=== PATIENT | female | born 1940 | race Asian ===

== ENCOUNTER → 2016-09-17 | Day surgery (SDC) | payer MEDICARE, MEDICAID ==
[2016-09-17] VITALS (8 sets, daily range): BP systolic 122–160; BP diastolic 67–85
[~2016-09-17] VITALS: Ht 152.4 cm; Wt 65.8 kg
[~2016-09-17] MED LIST: Akten 3.5% 1ml Btl ONE; BSS 15ml BTL ONE; BSS 500ml btl ONE; CENTRUM COMPLE1 EAC1 PO; Dexamethasone 4mg/ml vial ONE; Diclofenac Sod 0.1% Op Soln ONE; DiphenhydrAMINE 50mg/ml Inj IVP PRN; EPINEPHrine 1mg/1ml Amp ONE; Gatifloxacin Opth Solution 0.5% ONE; LR 1000ml 1,000 ML IVLG SCH; LR 1000ml ONE; Labetalol 5mg/ml 20ml vial IV PRN; Lidocaine 1% MPF 10mg/ml 5ml ONE; Phenylephrine 2.5% Op Soln ONE; Povidone-Iodine 5% opth solution ONE; Sodium Hyaluronate 14 mg/ml 0.85ml ONE; TYLENOL EXTRA500 MG ORAL; Tobradex Opth Susp 2.5ml ONE; Tropicamide 1% Opth Soln ONE; VITAMIN C500 M1 ORAL; VITAMIN D1000 UNI1 ORAL; fentaNYL 100 mcg/2 mL IV ONE
--- NOTE | 2016-09-17 07:40 | Pre-Procedure Note/Attestation ---
Pre-Procedure Note/Attestation Complete Prior to Procedure Planned Procedure: right Procedure Narrative: cataract extraction with implant right eye Indications for Procedure Pre-Operative Diagnosis: cataract right eye Attestation I attest that I discussed the nature of the procedure; its benefits; risks and complications; and alternatives (and the risks and benefits of such alternatives ), prior to the procedure, with the patient (or the patient's legal sales representative meats). I attest that, if there was a reasonable possibility of needing a blood transfusion, the patient (or the patient's legal sales representative meats) was given the [facility] standardized written summary, pursuant to the [place] Blood Safety Act ([place] Health and Safety Code # 1645, as amended). I attest that I re-evaluated the patient just prior to the surgery and that there has been no change in the patient's H&P, except as documented below: HARSHA JONES Sep 17, 2016 07:40
[2016-09-17] MEDS: Gatifloxacin Opth Solution 0.5% RIGHT EYE SCH ×3 (08:09→08:31)
[2016-09-17] MEDS: Diclofenac Sod 0.1% Op Soln RIGHT EYE SCH ×3 (08:09→08:31)
[2016-09-17] MEDS: Tobradex Opth Susp 2.5ml RIGHT EYE SCH ×3 (08:09→08:30)
[2016-09-17] MEDS: Phenylephrine 2.5% Op Soln RIGHT EYE SCH ×3 (08:09→08:30)
[2016-09-17] MEDS: Tropicamide 1% Opth Soln RIGHT EYE SCH ×3 (08:09→08:31)
[2016-09-17] MEDS: Akten 3.5% 1ml Btl RIGHT EYE SCH ×3 (08:09→08:31)
--- NOTE | 2016-09-17 08:31 | Anethesia Preoperative Eval ---
Anesthesia Pre-op PMH/ROS General Date of Evaluation: Sep 17, 2016 Anesthesiologist: Sotero ASA Score: ASA 2 Mallampati Score Class I : Soft palate, uvula, fauces, pillars visible Class II: Soft palate, uvula, fauces visible Class III: Soft palate, base of uvula visible Class IV: Only hard plate visible Mallampati Classification: Class II Surgeon: Kamran Diagnosis: Right cataract Surgical Procedure: Right cataract exraction with IOL Anesthesia History: none Family History: no anesthesia problems Allergies: Coded Allergies: No Known Allergies (Unverified , 09/16/16) Medications: see eMAR Past Medical History Cardiovascular: Reports: HTN, Denies: CAD, [place], arrhythmia, other, valve dz Pulmonary: Denies: COPD, KAMI, asthma, other Gastrointestinal/Genitourinary: Denies: CRI, ESRD, GERD, other Neurologic/Psychiatric: Denies: CVA, TIA, dementia, depression/anxiety, other Endocrine: Denies: DM, hypothyroidism, other, steroids HEENT: Denies: [place] (L), [place] (R), cataract (L), cataract (R), glaucoma, other Hematology/Immune: Denies: DVT, anemia, bleeding disorder, other Musculoskeletal/Integumentary: Reports: OA, Denies: DDD, DJD, RA, edema, other PSxH Narrative: TAHBSO Anesthesia Pre-op Phys. Exam Physician Exam see chart Constitutional: NAD Cardiovascular: RRR Respiratory: CTA Airway Exam Mallampati Score: Class II MO: full ROM: full Teeth: intact Anesthesia Pre-op A/P Labs Chemistry Test 09/17/16 08:10 Sodium Level Pending Potassium Level Pending Chloride Level Pending Carbon Dioxide Level Pending Blood Urea Nitrogen Pending Creatinine Pending Estimat Glomerular Filtration Rate Pending Glucose Level Pending Calcium Level Pending Studies Pre-op Studies: EKG - sr Risk Assessment & Plan Assessment: ASA II Plan: MAC Status Change Before Surgery: No Pre-Antibiotics Drug: N/A AKI CHAU M.D. Sep 17, 2016 08:31
--- NOTE | 2016-09-17 08:32 | Immediate Post-Op Evaluation ---
Immediate Post-Op Evalulation Immediate Post-Op Evalulation Procedure: Right catarct extraction with IOL Date of Evaluation: Sep 17, 2016 Time of Evaluation: 09:37 IV Fluids: 200 Blood Products: 0 Estimated Blood Loss: 0 Urinary Output: 0 Blood Pressure Systolic: 158 Blood Pressure Diastolic: 82 Pulse Rate: 88 Respiratory Rate: 17 O2 Sat by Pulse Oximetry: 100 Temperature (Fahrenheit): 99 Pain Score (1-10): 0 Nausea: No Vomiting: No Complications 0 Patient Status: awake, reacts, patent, none Hydration Status: adequate Drug: N/A AKI CHAU M.D. Sep 17, 2016 08:32
--- NOTE | 2016-09-17 08:32 | 48 Hour Post Anesthesia Eval ---
Post Anesthesia Evaluation Procedure: Right catarct extraction with IOL Date of Evaluation: Sep 17, 2016 Blood Pressure Systolic: 142 0: 86 Pulse Rate: 84 Respiratory Rate: 16 O2 Sat by Pulse Oximetry: 100 Airway: patent Nausea: No Vomiting: No Pain Intensity: 0 Hydration Status: adequate Cardiopulmonary Status: at baseline Mental Status/LOC: patient returned to baseline Post-Anesthesia Complications: 0 Follow-up care needed: ready to discharge AKI CHAU M.D. Sep 17, 2016 08:32
[2016-09-17 08:47] LABS: ANION GAP 15 (5-15); CALCIUM 8.8 mg/dL (8.6-10.2); CARBON DIOXIDE 26 mEQ/L (20-30); CHLORIDE 104 mEQ/L (98-107); CREATININE 0.5 mg/dL (0.5-0.9); HEMOLYSIS 5; POTASSIUM 3.8 mEQ/L (3.4-4.9); SODIUM 145 mEQ/L (135-145)
--- NOTE | 2016-09-17 09:38 | Brief Operative Note ---
Immediate Post Operative Note Operative Note Pre-op Diagnosis: cataract right eye Procedure: phacoemulsification of cataract with implant right eye Post-op Diagnosis: same as pre-op Surgeon: harsha rain Drying Machine Back Tender: none Anesthesiologist: aung boston Anesthesia: MAC Specimen: none Complications: none Condition: stable Estimated Blood Loss: none Drains: none Implant(s) used?: Yes HARSHA RAIN Sep 17, 2016 09:38
--- NOTE | 2016-09-17 15:08 | Operative Note - Dictated ---
DATE OF OPERATION: 09/17/2016 PREOPERATIVE DIAGNOSIS: Cataract, right eye. POSTOPERATIVE DIAGNOSIS: Cataract, right eye. PROCEDURE: Phacoemulsification cataract right eye with placement of posterior chamber intraocular lens. SURGEON: Gamaliel Andrew M.D. HOMEBIRTH MIDWIFE: None. ANESTHESIA: MAC/topical. ANESTHESIOLOGIST: Dr. Nataliya Paz. INDICATION PROCEDURE: Poor vision right eye. DESCRIPTION OF FINDINGS: Dense nuclear sclerotic cataract, right eye. DESCRIPTION OF PROCEDURE: The patient received a topical anesthetic block consisting of 3.5% Akten eye drops. The eye was then prepped and draped in the usual manner. A lid speculum was placed. An operating Zeiss microscope was positioned. A temporal corneal groove was made with a maya blade. A SuperSharp blade made a stab incision at the 12 o'clock position. A 0.1 mL of 1% nonpreserved intracameral lidocaine was injected. Healon was instilled into the anterior chamber and a 2.5/2.8 mm trapezoidal maya blade was used to complete the temporal corneal wound. A cystotome was used to create an anterior capsular flap. Utrata forceps were used to complete the capsulorrhexis. BSS on a cannula was used to hydrodissect the nucleus. The lens nucleus was phacoemulsified in a phaco-fracture technique. Remaining cortical material was removed with the I/A and the posterior capsule polished with the I/A on Cap vac. Healon was reinstilled in the capsular bag and anterior chamber, and an Gabe Foldable one piece posterior chamber intraocular lens, model [id number], power 22.5 diopter, serial #[id number] was placed in the injector. The lens was put in the capsular bag. The I/A tip was used to remove the Healon and position the lens. The wound edge was hydrated with BSS and a blunt-tipped cannula. The wound was checked and found to be watertight. The lid speculum was removed. A drop of TobraDex and Zymaxid was placed. A clear plastic shield was taped over the eye. The patient tolerated the procedure well and left the operating room in good condition. Gamaliel Andrew M.D. ([facility] [place]) DR: Annika JOB#: [id number] CC:
== END | disposition home or self-care (01) ==
LOC: SUR 06:37
DX: H25.11 Age-related nuclear cataract, right eye (principal); H35.30 Unspecified macular degeneration; E78.5 Hyperlipidemia, unspecified; I10 Essential (primary) hypertension; M19.90 Unspecified osteoarthritis, unspecified site; M81.0 Age-related osteoporosis without current pathological fracture; Z85.41 Personal history of malignant neoplasm of cervix uteri; Z90.710 Acquired absence of both cervix and uterus; Z90.722 Acquired absence of ovaries, bilateral; Z90.79 Acquired absence of other genital organ(s)
CPT/HCPCS: 36415; 66984; 80048; J0171; J1100; J3010; J7120; V2632; 94003; 94150